=== PATIENT | male | born 1990 | race Caucasian/White ===

== ENCOUNTER 2017-08-25 21:40 | Emergency (ER) | payer SELFPAY ==
[~2017-08-25] VITALS: Ht 167.6 cm; Wt 63.0 kg
[~2017-08-25 21:40] MED LIST: DICL75 PO; Z.0.NO CURRENT MEDS
[2017-08-25 21:50] VITALS: BP 134/83; PULSE 93; RESP 16; TEMP 98.6; O2SAT 97
--- NOTE | 2017-08-25 22:07 | PD ---
HPI Chief Complaint: OD/ Ingestion Time Seen by Provider: 22:05 Travel History International Travel<30 days: No Contact w/Intl Traveler<30days: No Traveled to known affect area: No History of Present Illness HPI 27-year-old male brought in by ambulance after being found in a hotel unresponsive and apneic. He was administered 2 mg of IM Narcan and had significant improvement in mental status. He denies using illicit drug use and is denying opiate use. He reports drinking alcohol today. Upon arrival to the emergency department he states he feels well. No physical complaints. He tells me he does not want stay in the emergency department and wants to leave immediately. No suicidal or homicidal ideation. PFSH Past Medical History Medical History: Denies Significant Hx Diminished Hearing: No Tetanus Vaccination: Unknown Influenza Vaccination: No Past Surgical History Surgical History: No Previous Surgery Social History Alcohol Use: Yes (DAILY) Tobacco Use: Yes Substance Use: No (PT DENIES) Allergies-Medications (Allergen,Severity, Reaction): Coded Allergies: No Known Allergies (Unverified , 11/28/12) Reported Meds & Prescriptions Reported Meds & Active Scripts Active Diclofenac Sodium 75 Mg Tab 75 Mg PO BID 10 Days Reported No Current Meds (Miscellaneous Medication) Misc Review of Systems Except as stated in HPI: all other systems reviewed are Neg Physical Exam Narrative GENERAL: Well-developed, well-nourished, awake, alert, no apparent distress. SKIN: Focused skin assessment warm/dry. HEAD: Atraumatic. Normocephalic. EYES: Pupils equal and round. No scleral icterus. No injection or drainage. ENT: Mucous membranes pink and moist. NECK: Trachea midline. No JVD. CARDIOVASCULAR: Regular rate and rhythm. RESPIRATORY: No accessory muscle use. Clear to auscultation. Breath sounds equal bilaterally. GASTROINTESTINAL: Abdomen soft, non-tender, nondistended. MUSCULOSKELETAL: No obvious deformities. No clubbing. No cyanosis. No edema. NEUROLOGICAL: Awake and alert. No obvious cranial nerve deficits. Motor grossly within normal limits. Normal speech. PSYCHIATRIC: Appropriate mood and affect; insight and judgment normal. Data Data Last Documented VS Vital Signs Date Time Temp Pulse Resp B/P (MAP) Pulse Ox O2 Delivery O2 Flow Rate FiO2 08/25/17 21:50 98.6 93 16 134/83 (100) 97 MDM Medical Decision Making Medical Screen Exam Complete: Yes Emergency Medical Condition: Yes Differential Diagnosis Opioid overdose, alcohol intoxication Narrative Course Shortly after assessing the patient he walked out of the emergency department with a steady gait. Patient was deemed to be eloped. Diagnosis Primary Impression: Opioid overdose Qualified Codes: T40.2X4A - Poisoning by other opioids, undetermined, initial encounter Disposition: AGAINST MEDICAL ADVICE Condition: Stable Prudencio Gaspar MD Aug 25, 2017 22:07
== END 2017-08-25 22:11 | disposition left against medical advice (07) ==
LOC: NEPC 21:40
DX: T40.2X4A Poisoning by other opioids, undetermined, initial encounter (principal); Z72.0 Tobacco use
CPT/HCPCS: 99283